=== PATIENT | female | born 1945 | race Caucasian/White ===

== ENCOUNTER → 2023-09-08 09:52 | Outpatient (REF) | payer MEDICARE, SELFPAY ==
[2023-09-08 10:53] LABS: % Basophils 0.2 % (0-2); % Eosinophils 1.2 % (0-6); % Immature Granulocytes 0.4 % (0-0.5); % Lymphocytes 14.8 % (20.5-51.1); % Monocytes 9.9 % (1.7-9.3); % Neutrophils 73.5 % (42.2-75.2); Absolute Eosinophils 0.1 10^3/uL (0-0.7); Absolute Lymphocytes 1.3 10^3/uL (1.2-3.4); Absolute Monocytes 0.8 10^3/uL (0.1-0.6); Absolute Neutrophils 6.2 10^3/uL (1.4-6.5); Hematocrit 40.1 % (37.0-47.0); Hemoglobin 13.4 g/dL (12.0-16.0); Mean Corp Hgb Conc. 33.4 g/dL (33.0-37.0); Mean Corpuscular Hgb 27.8 pg (27.0-31.0); Mean Corpuscular Volume 83.2 fL (81.0-99.0); Mean Platelet Volume 9.1 fL (7.4-10.4); Nucleated Red Blood Cells % 0 %; Platelet Count 424 10^3/uL (130-400); Red Blood Cell Count 4.82 10^6/uL (4.20-5.40); Red Cell Dist. Width 14.7 % (11.5-14.5); White Blood Cell Count 8.4 10^3/uL (4.8-10.8)
[2023-09-08 11:24] LABS: ALT (SGPT) 24 U/L (0-35); AST (SGOT) 27 U/L (14-36); Albumin 4.5 g/dl (3.5-5.0); Alkaline Phosphatase 84 U/L (38-126); Blood Urea Nitrogen 15 mg/dl (7-17); Calcium 10.2 mg/dl (8.4-10.2); Carbon Dioxide 25 mmol/L (22-30); Chloride 98 mmol/L (98-107); Glucose 96 mg/dl (70-99); Potassium 4.3 mmol/L (3.5-5.1); Sodium 133 mmol/L (135-145); Total Bilirubin 0.7 mg/dl (0.2-1.3); Total Cholesterol 311 mg/dl (50-199); Total Protein 7.4 g/dl (6.3-8.2); Triglyceride 100 mg/dl (10-149); Very Low Density Lipoprotein 20 mg/dl (0-30); eGFR > 60.00
[2023-09-08 11:37] LABS: HDL Cholesterol 112 mg/dl; LDL Cholesterol, Calculated 179 mg/dl
[2023-09-08 12:32] LABS: TSH Reflex To Free T4 2.19 uIU/ml (0.47-4.68)
== END ==
LOC: REG 09:52
PROVIDERS: ATTENDING PHYSICIAN Family Medicine
DX: E78.00 Pure hypercholesterolemia, unspecified (principal); E87.1 Hypo-osmolality and hyponatremia; D68.51 Activated protein C resistance; K21.9 Gastro-esophageal reflux disease without esophagitis
CPT/HCPCS: 36415; 80053; 80061; 84443; 85025

== ENCOUNTER 2023-09-27 11:30 | Emergency (ER) | payer MEDICARE, SELFPAY ==
[2023-09-27] VITALS (7 sets, daily range): BP systolic 126–147; BP diastolic 67–90; BMI 21.6
[2023-09-27 12:05] LABS: % Basophils 0.4 % (0-2); % Eosinophils 3.9 % (0-6); % Immature Granulocytes 0.4 % (0-0.5); % Lymphocytes 7.8 % (20.5-51.1); % Monocytes 9.1 % (1.7-9.3); % Neutrophils 78.4 % (42.2-75.2); Absolute Eosinophils 0.3 10^3/uL (0-0.7); Absolute Lymphocytes 0.5 10^3/uL (1.2-3.4); Absolute Monocytes 0.6 10^3/uL (0.1-0.6); Absolute Neutrophils 5.4 10^3/uL (1.4-6.5); Hematocrit 37.6 % (37.0-47.0); Hemoglobin 13.1 g/dL (12.0-16.0); Mean Corp Hgb Conc. 34.8 g/dL (33.0-37.0); Mean Corpuscular Hgb 28.1 pg (27.0-31.0); Mean Corpuscular Volume 80.7 fL (81.0-99.0); Mean Platelet Volume 8.6 fL (7.4-10.4); Nucleated Red Blood Cells % 0 %; Platelet Count 388 10^3/uL (130-400); Red Blood Cell Count 4.66 10^6/uL (4.20-5.40); Red Cell Dist. Width 14.8 % (11.5-14.5); White Blood Cell Count 6.9 10^3/uL (4.8-10.8)
[2023-09-27 12:24] LABS: ALT (SGPT) 23 U/L (0-35); AST (SGOT) 26 U/L (14-36); Albumin 3.8 g/dl (3.5-5.0); Alkaline Phosphatase 86 U/L (38-126); Blood Urea Nitrogen 13 mg/dl (7-17); Calcium 10.3 mg/dl (8.4-10.2); Carbon Dioxide 27 mmol/L (22-30); Chloride 93 mmol/L (98-107); Estimated Creatinine Clearance 47 ml/min; Glucose 103 mg/dl (70-99); Potassium 4.1 mmol/L (3.5-5.1); Sodium 127 mmol/L (135-145); Total Bilirubin 0.7 mg/dl (0.2-1.3); Total Protein 6.8 g/dl (6.3-8.2); eGFR > 60.00
[2023-09-27] MEDS: NSS 1000 IV (12:24)
[2023-09-27 13:04] LABS: COVID-19 Antigen Negative (Negative)
--- NOTE | 2023-09-27 13:20 | ED.GENMED ---
History of Present Illness
General
Chief Complaint: Breathing Problem
Source: patient
Exam Limitations: none
Time Seen by Provider: 09/27/23 11:58
Nursing documentation reviewed up to this point in time: agreed with
History of Present Illness
History of Present Illness:
Patient with history of asthma and previous history of pulmonary embolism, currently taking Eliquis 2.5 mg twice daily, presents to ED secondary to 10-day history of fatigue, decreased appetite, and generalized weakness. Patient reports chronic
cough, which has not changed in nature. Denies vomiting or diarrhea. Denies headache. Denies dizziness. Denies leg pain or swelling. Denies back pain. Denies sick contact. Denies recent travel or surgery. Patient reports seeing her primary
care physician 3 days ago and was started on Zithromax, without improvement symptoms.
Past History
Past History
ED Past Medical History: Asthma and Other (To 5 Leiden deficiency with PE, asthma, status post hysterectomy)
ED Past Surgical History: Gynecological
Social History
Tobacco: Non-smoker
Alcohol: Occasional
Drug: None
Personal:
Living: with family
Family History
Family History: CAD and Other (pancreatic CA)
Review of Systems
Review of Systems
Allergies reviewed?: Yes
All Other Systems: ROS reviewed and negative except as documented in HPI and ROS
Constitutional: Reports no symptoms
EENT: Reports no symptoms
Respiratory: Reports cough; Denies trouble breathing
Cardiac: Reports no symptoms; Denies chest pain
ABD/GI: Reports nausea
: Reports no symptoms
Musculoskeletal: Reports no symptoms
Skin: Reports no symptoms
Neurological: Reports weakness; Denies headache
Phy Exam
Physical Exam
Physical Exam:
Physical Exam
General: mild distress, not acutely ill. afebrile
Head: nc/at. eomi
Neck: supple. no meningeal signs.
Heart: tachycardic, no murmur. equal radial pulses.
Lungs: no acute respiratory distress. diminished breath sounds bilaterally
Abdomen: normal bowel sounds. not tender.
Neuro: alert and oriented. no focal neurological deficits
Skin: no rash
Psychiatric: well kept. interactive and cooperative
Extremities: no edema. no calf tenderness.
Scores
Heart Failure Risk
Heart Failure Risk Score: Not Applicable
Course
Orders/Labs/Results
Orders:
Orders
09/27/23 11:42
Electrocardiogram (*1) Urgent
Reason for Study: Shortness of Breath
EKG- Treatment ONCE
09/27/23 11:52
IV Insert/Care/Rem.- Treatment PRN
Chest [CR Chest - 2 Views ] Urgent
Comment:
Reason For Exam: sob/cough
09/27/23 11:58
Complete Blood Count/With Diff Urgent
Comprehensive Metabolic Panel Urgent
NT-proBNP Urgent
Comment: ADD
09/27/23 12:11
0.9% Sodium Chloride 1000 ml [Nss] 1,000 ml IV BOLUS
09/27/23 12:24
COVID-19 Antigen Urgent
Source: Nasal Swab
09/27/23 13:39
CT Chest Pe Study Urgent
Comment:
Reason For Exam: sob/hypoxia
09/27/23 13:45
Urinalysis Reflex To Culture Urgent
Date Specimen was Collected: 09/27/23
Time Specimen was Collected: 13:36
09/27/23 13:54
Add On- LAB Urgent
Tests Added?: Pro-BNP
09/27/23 14:26
Troponin I Urgent
09/27/23 17:18
Case Management Consult ONCE
Case Management Consult: Other
09/27/23 18:07
Prednisone [Deltasone] 40 mg PO NOW STA
Abnormal Lab Results
09/27/23 09/27/23
11:58 13:45
MCV 80.7 L fL
(81.0-99.0)
RDW 14.8 H %
(11.5-14.5)
Absolute Lymphs (auto) 0.5 L 10^3/uL
(1.2-3.4)
Neutrophils % 78.4 H %
(42.2-75.2)
Lymphocytes % 7.8 L %
(20.5-51.1)
Sodium 127 L mmol/L
(135-145)
Chloride 93 L mmol/L
(98-107)
Glucose 103 H mg/dl
(70-99)
Calcium 10.3 H mg/dl
(8.4-10.2)
Urine Ketones Trace A
(Negative)
09/27/23 11:58
09/27/23 11:58
Vital Signs
Initial and Last Documented VS:
Initial Vital Signs
Temp Pulse Resp BP Pulse Ox
97.8 F 128 22 144/90 90
09/27/23 11:34 09/27/23 11:34 09/27/23 11:34 09/27/23 11:34 09/27/23 11:34
Last Documented Vital Signs
Temp Pulse Resp BP Pulse Ox
97.8 F 95 29 138/87 94
09/27/23 11:34 09/27/23 17:30 09/27/23 17:30 09/27/23 17:00 09/27/23 18:45
MDM/Problems Addressed
MDM/Problems Addressed:
During short ambulation to restroom, patient noted to become moderately short of breath along with desaturation (70% on RA), quickly rebounding when laid back on stretcher. Pt requiring 2L oxygen via NC to maintain O2sat > 94%.
CTA Chest ordered due to previous history of pulm embolism as well as profound hypoxia. No PE identified.
Discussed treatment options and differential diagnosis with patient extensively, including recommendation for admission to the hospital for further evaluation, including IV steroids, nebulizer treatment, and or antibiotics. However, patient due to
herself living alone, along with her dog who needs to be taken care of, patient does not wish to be admitted to the hospital at this time. Patient understands the risk, including worsening condition, i.e. MS/CVA/worsening shortness of breath. At
this time, after consultation with case management, home oxygen tank has been arranged. Pt will be discharged also with tapered dose of prednisone, as well as recommendation for close follow up with her coordinator volunteer services or PCP. Advised to return to ED
with worsening symptoms.
*EKG
Interpreted by ED Provider?: Yes
EKG Intrepretation Date: 09/27/23
Heart Rate: 109
Rate: tachycardiac
Rhythm: sinus
[place]: normal axis
QRS Pattern: right bundle branch block
*Critical Care Note
Total Time (30-74mins, 75-104mins- exclusive of procedures): Not Applicable
ED Attending Note
-
Portions of this chart may have been created with voice recognition software.� Occasional wrong word or��sound alike� substitutions may have occurred due to the inherent limitations of voice recognition software.
Discharge Plan
Departure
Patient Disposition: Home (Routine Discharge)
Date of Disposition: 09/27/23
Time of Disposition: 18:13
Patient with high blood pressure during this ER visit?: Yes
Condition: Fair
Discharge Problem:
Bronchitis, Hypoxia, Dyspnea
Instructions: Shortness of Breath (Dyspnea) (DC), Bronchitis, Adult ED
Prescriptions:
New
prednisone 20 mg tablet
20 mg PO DAILY Qty: 20 0RF
Rx Instructions:
Day 1-2: 40 mg po daily
Day 3-5: 30 mg po daily
Day 6-8: 20 mg po daily
Day 9-11: 10 mg po daily
No Action
fluoxetine 10 MG capsule
10 mg PO DAILY
albuterol sulfate 2.5 mg /3 mL (0.083 %) solution for nebulization
2.5 mg inhalation R Q8
fexofenadine [Bessie] 60 mg Tablet
60 mg PO DAILY
azithromycin 250 mg tablet
250 mg PO DAILY
omeprazole 40 mg capsule,delayed release(DR/EC)
40 mg PO DAILY
budesonide 0.5 mg/2 mL suspension for nebulization
0.5 mg inhalation R BID
montelukast 10 mg tablet
10 mg PO DAILY
ipratropium bromide 0.02 % solution
2.5 ml inhalation R Q8
guaifenesin 400 mg Tablet
400 mg PO Q4HPRN PRN (Reason: cough)
cholecalciferol (vitamin D3) 25 mcg (1,000 unit) Tablet
25 mcg PO DAILY
Visbiome 112.5 billion cell Capsule
1 cap PO DAILY
azelastine 205.5 mcg (0.15 %) [place],Non-Aerosol
1 spray INTRANASAL BIDPRN PRN (Reason: congestion)
Eliquis 2.5 mg tablet
2.5 mg PO BID
omega 3-vyi-pwc-fish oil [Fish Oil] 1,200 (144-216) mg Capsule
1 cap PO DAILY
Referrals:
Casey Jeffrey MD [Active] -
Kavitha Gutierrez MD [Family Provider] -
Activity Restrictions/Additional Instructions:
As discussed, please follow-up with your primary care physician and/or coordinator volunteer services for further evaluation and treatment. Please return to ED with worsening symptoms. Your prescription has been sent electronically to [facility] pharmacy in [place].
Interventions
Interventions:
*Risk Screen - Suicide Last Done: 09/27/23 11:39
*General Assessment Last Done: 09/27/23 11:39
*Neglect/Abuse Screening Last Done: 09/27/23 11:39
ED- Fall Risk Assessment Last Done: 09/27/23 18:05
*ED COVID-19 Vaccine History Last Done: 09/27/23 18:05
*Nursing Disposition Last Done: 09/27/23 19:14
ED- Cardiac Assessment Last Done: 09/27/23 12:00
ED- Pulmonary Assessment Last Done: 09/27/23 12:00
Discharge Date and Time
Discharge Date/Time: 09/27/23 19:15
Print Language: ERITREAN
--- NOTE | 2023-09-27 13:58 | EDRN ---
delay in note d/t pt care: pt spo2 checked off O2 77% then 84% pt placed on 2L NC and spo2 94%
[2023-09-27 14:33] LABS: Urine Albumin Negative (Neg - Trace); Urine Bilirubin Negative (Negative); Urine Character Clear (Clear); Urine Color Yellow; Urine Glucose Negative (Negative); Urine Ketone Trace (Negative); Urine Leukocyte Negative (Negative); Urine Nitrite Negative (Negative); Urine Occult Blood Negative (Negative); Urine Urobilinogen Negative (Neg - 1+)
[2023-09-27 14:43] LABS: NT-proBNP 495 pg/ml
[2023-09-27 14:56] LABS: Troponin I < 0.012 ng/ml
--- NOTE | 2023-09-27 17:32 | CM ---
Addendum entered by Asya Dover RN 09/27/23 17:47:
WALLY confirmed [facility] received order and demographics. Asya from [facility] confirmed that oxygen will be delivered to the room before 7pm and patient will then be set up at home. CM updated bedside RN and ED MD.
Original Note:
CM sent Oxygen order to [facility]. Pending confirmation of order.
[2023-09-27] MEDS: DELTASONE 40 MG PO (18:12)
== END 2023-09-27 19:15 | disposition home or self-care (01) ==
LOC: EMR 11:30
PROVIDERS: EMERGENCY PHYSICIAN Emergency Medicine; FAMILY PHYSICIAN Family Medicine
DX: J40 Bronchitis, not specified as acute or chronic (principal); R09.02 Hypoxemia; R06.00 Dyspnea, unspecified
CPT/HCPCS: 99285; 96360; 71046; 71275; 80053; 81003; 83880; 84484; 85025; 87811; 93005; Q9967

== ENCOUNTER → 2023-11-11 14:58 | Outpatient (REF) | payer MEDICARE, SELFPAY ==
[2023-11-11 17:22] LABS: Creatine Phosphokinase 70 U/L (30-135)
[2023-11-11 17:29] LABS: NT-proBNP 261 pg/ml
[2023-11-11 17:38] LABS: C-Reactive Protein < 5.00 mg/L (0.0-10.00)
[2023-11-11 23:24] LABS: IgA 341 mg/dl (70-400); IgG 835 mg/dl (700-1600); IgM 50 mg/dl (40-230)
[2023-11-12 12:55] LABS: Rheumatoid Agglutinin Less Than 10 IU (<10 IU)
[2023-11-13 21:06] LABS: Angiotensin-1-converting Enzym 67 U/L (16-85)
[2023-11-13 21:09] LABS: Aldolase 3.7 U/L (1.2-7.6)
[2023-11-14 02:54] LABS: ANA, IgG Reflex to HEp-2 None Detected (None Detected)
== END ==
LOC: REG 14:58
PROVIDERS: ATTENDING PHYSICIAN Internal Medicine Critical Care Medicine; FAMILY PHYSICIAN Family Medicine
DX: J84.9 Interstitial pulmonary disease, unspecified (principal); J47.9 Bronchiectasis, uncomplicated; J45.50 Severe persistent asthma, uncomplicated
CPT/HCPCS: 36415; 82085; 82103; 82104; 82164; 82550; 82784; 82787; 83516; 83880; 86038; 86140; 86225; 86235; 86331; 86430; 86606

== ENCOUNTER 2024-01-28 09:30 | Outpatient (RCR) | payer MEDICARE, SELFPAY | END 2024-01-28 15:00 | disposition home or self-care (01) | LOC: PURB 09:30 | PROVIDERS: ATTENDING PHYSICIAN Internal Medicine Critical Care Medicine; FAMILY PHYSICIAN Family Medicine | DX: J45.50 Severe persistent asthma, uncomplicated (principal) | CPT/HCPCS: G0237; G0239 ==

== ENCOUNTER → 2024-02-18 12:00 | Outpatient (REF) | payer MEDICARE, SELFPAY | LOC: DHSLP 12:00 | PROVIDERS: ATTENDING PHYSICIAN Internal Medicine | DX: G47.33 Obstructive sleep apnea (adult) (pediatric) (principal); R09.02 Hypoxemia | CPT/HCPCS: 95800 ==

== ENCOUNTER 2024-02-23 09:30 | Outpatient (RCR) | payer MEDICARE, SELFPAY | END 2024-02-27 23:59 | disposition home or self-care (01) | LOC: PURB 09:30 | PROVIDERS: ATTENDING PHYSICIAN Internal Medicine Critical Care Medicine; FAMILY PHYSICIAN Family Medicine | DX: J45.50 Severe persistent asthma, uncomplicated (principal) | CPT/HCPCS: G0239 ==

== ENCOUNTER 2024-03-01 09:30 | Outpatient (RCR) | payer MEDICARE, SELFPAY | END 2024-03-11 13:38 | disposition home or self-care (01) | LOC: PURB 09:30 | PROVIDERS: ATTENDING PHYSICIAN Internal Medicine Critical Care Medicine; FAMILY PHYSICIAN Family Medicine | DX: J45.50 Severe persistent asthma, uncomplicated (principal) | CPT/HCPCS: G0239 ==

== ENCOUNTER → 2024-03-01 10:38 | Outpatient (REF) | payer MEDICARE, SELFPAY ==
[2024-03-01 11:59] LABS: % Basophils 0.8 % (0-2); % Eosinophils 2.3 % (0-6); % Immature Granulocytes 0.3 % (0-0.5); % Lymphocytes 16.3 % (20.5-51.1); % Monocytes 10.1 % (1.7-9.3); % Neutrophils 70.2 % (42.2-75.2); Absolute Basophils 0.1 10^3/uL (0-0.2); Absolute Eosinophils 0.1 10^3/uL (0-0.7); Absolute Monocytes 0.6 10^3/uL (0.1-0.6); Absolute Neutrophils 4.3 10^3/uL (1.4-6.5); Hematocrit 41.1 % (37.0-47.0); Hemoglobin 13.5 g/dL (12.0-16.0); Mean Corp Hgb Conc. 32.8 g/dL (33.0-37.0); Mean Corpuscular Hgb 28.5 pg (27.0-31.0); Mean Corpuscular Volume 86.7 fL (81.0-99.0); Nucleated Red Blood Cells % 0 %; Platelet Count 361 10^3/uL (130-400); Red Blood Cell Count 4.74 10^6/uL (4.20-5.40); Red Cell Dist. Width 17.4 % (11.5-14.5); White Blood Cell Count 6.1 10^3/uL (4.8-10.8)
[2024-03-01 12:07] LABS: Iron 143 ug/dl (37-170)
[2024-03-01 12:16] LABS: Percent Saturation 38 % (20-50); Total Iron Binding Capacity 371 ug/dl (265-497)
[2024-03-01 12:43] LABS: Ferritin 16.9 ng/ml (11.1-264.0)
== END ==
LOC: REG 10:38
PROVIDERS: ATTENDING PHYSICIAN Internal Medicine Critical Care Medicine; FAMILY PHYSICIAN Internal Medicine
DX: E61.1 Iron deficiency (principal); W57.XXXA Bitten or stung by nonvenomous insect and other nonvenomous arthropods, initial encounter
CPT/HCPCS: 36415; 82728; 83540; 83550; 85025

== ENCOUNTER → 2024-04-22 14:22 | Outpatient (REF) | payer MEDICARE, SELFPAY ==
[2024-04-22 15:33] LABS: % Basophils 0.6 % (0-2); % Eosinophils 2.2 % (0-6); % Immature Granulocytes 0.3 % (0-0.5); % Lymphocytes 21.1 % (20.5-51.1); % Monocytes 6.6 % (1.7-9.3); % Neutrophils 69.2 % (42.2-75.2); Absolute Eosinophils 0.1 10^3/uL (0-0.7); Absolute Lymphocytes 1.4 10^3/uL (1.2-3.4); Absolute Monocytes 0.4 10^3/uL (0.1-0.6); Absolute Neutrophils 4.4 10^3/uL (1.4-6.5); Hemoglobin 14.8 g/dL (12.0-16.0); Mean Corp Hgb Conc. 34.4 g/dL (33.0-37.0); Mean Corpuscular Hgb 30.8 pg (27.0-31.0); Mean Corpuscular Volume 89.6 fL (81.0-99.0); Mean Platelet Volume 8.8 fL (7.4-10.4); Nucleated Red Blood Cells % 0 %; Platelet Count 339 10^3/uL (130-400); Red Cell Dist. Width 17.2 % (11.5-14.5); White Blood Cell Count 6.4 10^3/uL (4.8-10.8)
[2024-04-22 15:37] LABS: Iron 157 ug/dl (37-170)
[2024-04-22 15:47] LABS: Percent Saturation 48 % (20-50); Total Iron Binding Capacity 323 ug/dl (265-497)
[2024-04-22 16:17] LABS: Ferritin 28.6 ng/ml (11.1-264.0)
== END ==
LOC: REG 14:22
PROVIDERS: ATTENDING PHYSICIAN Internal Medicine
DX: E61.1 Iron deficiency (principal); W57.XXXA Bitten or stung by nonvenomous insect and other nonvenomous arthropods, initial encounter
CPT/HCPCS: 36415; 82728; 83540; 83550; 85025

== ENCOUNTER 2025-02-03 06:22 | Day surgery (SDC) | payer MEDICARE, SELFPAY ==
[2025-02-03 10:29] VITALS: BMI 19.9
[2025-02-03 10:30] VITALS: BMI 19.9
[2025-02-03 10:31] VITALS: BP 145/82
[2025-02-03 11:47] VITALS: BP 107/75
[2025-02-03 12:03] VITALS: BP 127/109
[2025-02-03 12:15] VITALS: BP 121/76
== END 2025-02-03 12:38 | disposition home or self-care (01) ==
LOC: SDS 06:22
PROVIDERS: ATTENDING PHYSICIAN Internal Medicine
DX: Z12.11 Encounter for screening for malignant neoplasm of colon (principal); D12.0 Benign neoplasm of cecum; D12.3 Benign neoplasm of transverse colon; K63.5 Polyp of colon; K63.89 Other specified diseases of intestine; K64.9 Unspecified hemorrhoids; Z86.0101 Personal history of adenomatous and serrated colon polyps; Z80.0 Family history of malignant neoplasm of digestive organs
CPT/HCPCS: 45385; 45380; 88305; 88342; 93005

== ENCOUNTER → 2025-02-15 15:00 | Outpatient (REF) | payer MEDICARE, SELFPAY | LOC: PAVMRI 15:00 | PROVIDERS: ATTENDING PHYSICIAN Internal Medicine | DX: R41.3 Other amnesia (principal) | CPT/HCPCS: 70551 ==